=== PATIENT | male | born 1960 | race Caucasian/White ===

== ENCOUNTER → 2020-03-31 | Outpatient (CLI) | payer OTHER ==
--- NOTE | 2020-04-01 08:04 | MR ---
EXAMINATION TYPE: MR cervical spine wo con DATE OF EXAM: 03/31/2020 COMPARISON: Pain HISTORY: Cervicalgia, cervical disc disease TECHNIQUE: Multiplanar, multisequence images of the cervical spine were acquired. C2-C3: Facet arthropathy and posterior spondylosis. No Canal stenosis. Neural foramina remain patent. Facet changes greater on the left. C3-C4: Severe degenerative disc disease with broad-based central disc herniation resulting in severe thecal sac compression and anterior compression the spinal cord. There is severe canal stenosis. Bila teral foraminal encroachment with facet arthropathy. C4-C5: Degenerative disc disease with small central disc protrusion. There is distortion of the theca l sac but no spinal cord contact. Facet arthropathy noted.. C5-C6: Degenerative disc disease and posterior spondylosis with broad-based disc herniation capped by spur resulting in severe canal stenosis and anterior compression the spinal cord. Moderate to severe bilateral foraminal encroachment greater on the right with uncovertebral joint hypertrophy. C6-C7: Broad-based disc protrusion capped by spur with compression of the spinal cord and severe sona l stenosis. Uncovertebral joint hypertrophy contributes to severe left foraminal encroachment and mod erate to severe right foraminal encroachment. C7-T1: No evidence for degenerative disc disease. No disc bulge/herniation or protrusion. No Canal stenosis. Foramina are patent bilaterally. Mild bilateral uncovertebral joint hypertrophy. Cervical segments are intact. There is normal alignment. Artifact limits assessment spinal cord. Cr aniovertebral junction relationships are within normal limits. IMPRESSION: 1. Multilevel severe degenerative disc disease with multilevel disc herniations resulting in severe c anal stenosis and foraminal encroachment. There is anterior compression the spinal cord at C3-4 C5-C6 and C6-C7. A [place] level critical message alert has been initiated for Jose Antonio Krishna DO via the [facility] Critical Results System on 04/01/2020 8:00 AM. This message alert has been sent to Oscar Ortiz via the preferences provided by the clinician for the receipt of Radiology Critical Findings. [facility] [place] vida é feita de [place] ID [id number].
== END | disposition home or self-care (01) ==
LOC: RADMRIMAIN 17:19
PROVIDERS: ATTEND Orthopaedic Surgery Orthopaedic Surgery of the Spine
DX: M48.02 Spinal stenosis, cervical region (principal); M50.31 Other cervical disc degeneration, high cervical region; M47.892 Other spondylosis, cervical region
CPT/HCPCS: 72141

== ENCOUNTER → 2023-03-21 | Outpatient (CLI) | payer OTHER ==
--- NOTE | 2023-03-22 08:34 | CTL ---
EXAMINATION TYPE: CT Low Dose Lung DATE OF EXAM ORDERED: 03/21/2023 HISTORY: . Lung cancer screening CT DLP: 84.[address] CTDI: 2.6 mGy Automated exposure control for dose reduction was used. SCREENING VISIT: COMPARISON: none TECHNIQUE: Low dose computed tomography scan was performed through the chest at 1 mm thick sections a nd reconstructed images in multiple planes at 1 mm and [address] DIAGNOSTIC QUALITY: Satisfactory FINDINGS: There is a 3 mm nodule left upper lobe subpleural axial image 88 There is a 1 mm nodule left upper lobe axial image 81 There is a 2 to 3 mm nodule right lower lobe axial image 209. There is mild to moderate centrilobular and paraseptal emphysema with no evidence of focal pneumonia, pleural effusion or pneumothorax. Aorta of normal caliber with mild atherosclerotic changes. Heart size normal and there is a trace of pericardial fluid. No pathologic adenopathy within the hilum or mediastinum. Shotty adenopathy in the mediastinum and axilla. Hypertrophic and degenerative changes spine. IMPRESSION: 1. COPD with the sub-5 mm pulmonary nodules which have a benign appearance. CT LUNG RAD AND CT CHEST RECOMMENDATION: Lung-Rad 2 Benign Appearance or Behavior: Continue annual sc reening with LDCT in 12 months.
== END | disposition home or self-care (01) ==
LOC: RADCTMAIN 17:09
PROVIDERS: ATTEND Family Medicine
DX: Z12.2 Encounter for screening for malignant neoplasm of respiratory organs (principal); F17.210 Nicotine dependence, cigarettes, uncomplicated; J44.9 Chronic obstructive pulmonary disease, unspecified; R91.8 Other nonspecific abnormal finding of lung field
CPT/HCPCS: 71271

== ENCOUNTER 2023-04-06 08:33 | Day surgery (SDC) | payer OTHER ==
[2023-04-04 08:47] VITALS: BMI 37.8
[~2023-04-06 08:33] MED LIST: LACTATED RINGERS 1,000 ML IV SCH
[2023-04-06 09:04] VITALS: TEMP 97
[2023-04-06] MEDS ORDERED: LIDOCAINE 2% INJ 20 MG/ML (2 ML VIAL) ONE (09:09)
[2023-04-06] MEDS ORDERED: PROPOFOL 10 MG/ML 20 ML VIAL IV ONE (09:09)
--- NOTE | 2023-04-06 09:13 | P.GSHP ---
History of Present Illness H&P Date: 04/06/23 Chief Complaint: Dysphagia, screening colonoscopy Is a 62-year-old male presents today for EGD and screening colonoscopy. Patient's echo with dysphagia. He's had trouble swallowing some foods. Past Medical History Past Medical History: Hypertension Additional Past Medical History / Comment(s): difficulty swallowing History of Any Multi-Drug Resistant Organisms: None Reported Past Surgical History: Appendectomy, Back Surgery, Cholecystectomy, Hernia Repair, Orthopedic Surgery Additional Past Surgical History / Comment(s): Colonoscopy, carpal tunnel, cataract bilateral 2020, echocardiagram 2022, Liver ultrasound 04/14 Past Anesthesia/Blood Transfusion Reactions: No Reported Reaction Additional Past Anesthesia/Blood Transfusion Reaction / Comment(s): no blood transfusion Smoking Status: Former smoker - Past Family History Father Family Medical History: Cancer Additional Family Medical History / Comment(s): colon cancer, liver cancer Sister(s) Family Medical History: Cancer Additional Family Medical History / Comment(s): brain cancer Medications and Allergies Home Medications Medication Instructions Recorded Confirmed Type Losartan Potassium 100 mg PO DAILY 04/04/23 04/04/23 History Allergies Allergy/AdvReac Type Severity Reaction Status Date / Time No Known Allergies Allergy Verified 04/06/23 08:54 Surgical - Exam Vital Signs Temp Pulse Resp BP Pulse Ox 97 F L 79 16 181/94 96 04/06/23 08:55 04/06/23 08:55 04/06/23 08:55 04/06/23 08:55 04/06/23 08:55 - General well developed, well nourished, no distress - Eyes PERRL - ENT normal pinna - Neck no masses - Respiratory normal expansion - Cardiovascular Rhythm: regular - Abdomen Abdomen: soft Assessment and Plan Assessment: Dysphagia, we'll perform EGD. We'll also perform screening colonoscopy.
--- NOTE | 2023-04-06 09:30 | P.OP ---
Date of Procedure: 04/06/23 Preoperative Diagnosis: Dysphagia Screening colonoscopy Postoperative Diagnosis: Antral gastritis Diverticulosis Procedure(s) Performed: EGD Colonoscopy Anesthesia: MAC Surgeon: Murtaza Chase Pathology: other (Antrum) Condition: stable Disposition: PACU Description of Procedure: The patient's placed on the endoscopy table in the lateral position. IV sedation. The gastro-/oropharynx passed into the esophagus into the stomach. Scope was then placed through the pylorus. The first and second portion of the duodenum appeared normal. Scope was then brought back the antrum and this appeared mildly inflamed. A biopsy of the antrum was performed. The remainder the stomach appeared normal. The scope was then retroflexed and stomach appeared normal. The GE junction was at 47 is. The distal esophagus appeared normal. Proximal esophagus appeared normal. Scope was withdrawn for patient. Next digital rectal exam was performed. This revealed no abnormalities. The flexible colonoscope was then placed patient anus and passed throughout the entire colon. The ileocecal valve was visualized. The cecum, ascending and transverse colon appeared normal. The descending and sigmoid colon had mild diverticular changes. Scope was then brought back the rectum this appeared normal. Scope withdrawn for patient.
[2023-04-06 09:50] VITALS: BP 127/78; PULSE 89; RESP 18
== END 2023-04-06 10:05 | disposition home or self-care (01) ==
LOC: ORWHC2ENDO 08:33
PROVIDERS: ATTEND Surgery
DX: Z12.11 Encounter for screening for malignant neoplasm of colon (principal); K31.9 Disease of stomach and duodenum, unspecified; K29.50 Unspecified chronic gastritis without bleeding; K57.30 Diverticulosis of large intestine without perforation or abscess without bleeding; I10 Essential (primary) hypertension; Z90.49 Acquired absence of other specified parts of digestive tract; Z98.890 Other specified postprocedural states; Z80.0 Family history of malignant neoplasm of digestive organs; Z87.891 Personal history of nicotine dependence; Z79.899 Other long term (current) drug therapy
CPT/HCPCS: 88305; 45378; 43239; J2704; J2001

== ENCOUNTER → 2024-10-02 | Outpatient (CLI) | payer OTHER ==
--- NOTE | 2024-10-03 08:34 | US ---
EXAMINATION TYPE: US kidneys/renal and bladder DATE OF EXAM: 10/02/2024 COMPARISON: NONE CLINICAL INDICATION: Male, 63 years old with history of R10.9 Left flank pain; Left flank pain for 2 months TECHNIQUE: Grayscale imaging of the bilateral kidneys and urinary bladder: FINDINGS: EXAM MEASUREMENTS: Right Kidney: 11.3 x 5.2 x 4.1 cm Left Kidney: 12.0 x 5.4 x 4.8 cm *Limitations due to large amount of overlying bowel gas Right Kidney: no evidence of hydronephrosis Left Kidney: lobulated contour Bladder: wnl Bilateral Jets seen: no Urinary bladder is sonolucent. Posterior wall is normal IMPRESSION: 1. Unremarkable renal ultrasound [facility], , 10/03/2024 8:31 AM
== END | disposition home or self-care (01) ==
LOC: RADUSWWP 14:55
PROVIDERS: ATTEND Internal Medicine
DX: Q63.1 Lobulated, fused and horseshoe kidney (principal)
CPT/HCPCS: 76770

== ENCOUNTER 2025-01-16 15:45 | Observation (INO) | payer OTHER ==
[2025-01-16] MEDS: SODIUM CHLORIDE 0.9% 1,000 ML IV STA (16:39)
[2025-01-16 16:46] LABS: Basophils % (A) 1 %; Eosinophils # (A) 0.4 k/uL (0-0.7); Eosinophils % (A) 4 %; HCT 48.5 % (39.0-53.0); Lymphocytes # (A) 2.3 k/uL (1.0-4.8); Lymphocytes % (A) 29 %; MCV 96.7 fL (80.0-100.0); Monocytes # (A) 0.4 k/uL (0-1.0); Monocytes % (A) 4 %; Neutrophils # (A) 4.8 k/uL (1.3-7.7); Neutrophils % (A) 60 %; Platelet Count 157 k/uL (150-450); RBC 5.02 m/uL (4.30-5.90); RDW 14.9 % (11.5-15.5)
[2025-01-16] MEDS: LORazepam 2 MG/ML INJ IV STA (16:51)
[2025-01-16 16:54] LABS: INR 1.1 (<1.2); Partial Thromboplastin Time 24.6 sec (22.0-30.0); Prothrombin Time 11.5 sec (10.0-12.5)
[2025-01-16 17:03] LABS: ALT 69 U/L (4-49); AST 67 U/L (17-59); African American GFR (CKD) 49 (>60 ml/min/1.73 sqM); Albumin 4.4 g/dL (3.5-5.0); Alkaline Phosphatase 111 U/L (38-126); Anion Gap 9 mmol/L; Blood Urea Nitrogen 24 mg/dL (9-20); Calcium 9.6 mg/dL (8.4-10.2); Carbon Dioxide 26 mmol/L (22-30); Chloride 104 mmol/L (98-107); Glucose 124 mg/dL (74-99); Non-African American GFR(CKD) 42 (>60 ml/min/1.73 sqM); Potassium 4.3 mmol/L (3.5-5.1); Sodium 139 mmol/L (137-145); Total Bilirubin 0.8 mg/dL (0.2-1.3); Total Protein 7.1 g/dL (6.3-8.2)
--- NOTE | 2025-01-16 17:52 | XR ---
EXAMINATION TYPE: XR chest 2V DATE OF EXAM: 01/16/2025 5:49 PM COMPARISON: CT low-dose lung 03/21/2023 TECHNIQUE: XR chest 2V Frontal and lateral views of the chest. CLINICAL INDICATION:Male, 64 years old with history of dysrhythmia; FINDINGS: Lungs/Pleura: Trace bilateral pleural effusions. No focal consolidation or pneumothorax. Pulmonary vascularity: Mild pulmonary vascular congestion. Heart/mediastinum: Cardiomediastinal silhouette is enlarged. Musculoskeletal: Multiple level degenerative disc disease changes seen throughout the spine. IMPRESSION: Cardiomegaly, pulmonary vascular congestion and trace bilateral pleural effusions. Correlate with BNP for congestive heart failure. [facility], , 01/16/2025 5:49 PM
--- NOTE | 2025-01-16 17:53 | ED ---
General Adult HPI - General Chief complaint: Arrhythmia/Palpitations Stated complaint: tachycardia Time Seen by Provider: 01/16/25 16:16 Source: patient Mode of arrival: ambulatory Limitations: no limitations - History of Present Illness Initial comments: Abraham is a 4-year-old gentleman with a history of alcohol abuse who presents to the emergency department today via private vehicle for evaluation of tachycardia. Patient reports that he has no complaints he went to his primary care office for checkup and was noted to be tachycardic and advised to come to the ER. Patient denies any chest pain palpitations lightheadedness or passing out. Patient reports he is usually heavy drinker last drink was yesterday he states that he does not feel shaky or like he is going through withdrawals he states that he can occasionally go without drinking without symptoms. Patient states that he has had an echo in the past did not get any follow-up on it but has no other known cardiac history. - Related Data Home Medications Medication Instructions Recorded Confirmed Ibuprofen [Motrin Ib] 800 mg PO DAILY 01/16/25 01/16/25 Allergies Allergy/AdvReac Type Severity Reaction Status Date / Time No Known Allergies Allergy Verified 01/16/25 16:42 Review of Systems ROS Statement: Those systems with pertinent positive or pertinent negative responses have been documented in the HPI. ROS Other: All systems not noted in ROS Statement are negative. Past Medical History Past Medical History: Hypertension History of Any Multi-Drug Resistant Organisms: None Reported Past Surgical History: Back Surgery, Cholecystectomy Additional Past Surgical History / Comment(s): carpal tunnel, hernia Smoking Status: Former smoker General Exam - General Exam Comments Initial Comments: Physical Exam GENERAL: Patient is well-developed and well-nourished. Patient is nontoxic and well-hydrated and is in no distress. Obese HENT: Normocephalic, Atraumatic. EYES: PERRL, EOMI PULMONARY: Unlabored respirations. No audible rales rhonchi or wheezing was noted. CARDIOVASCULAR: Tachycardic, regular ABDOMEN: Soft and nontender with normal bowel sounds. SKIN: Skin is clear with no lesions or rashes and otherwise unremarkable. : Deferred NEUROLOGIC: Patient is alert and oriented x3. Moving all extremities spontaneously MUSCULOSKELETAL: Normal extremities with adequate strength and full range of motion. No lower extremity swelling or edema. No calf tenderness. PSYCHIATRIC: Normal psychiatric evaluation. Limitations: no limitations Course Vital Signs 01/16/25 01/16/25 01/16/25 15:49 16:37 16:53 Temperature 98.0 F Pulse Rate 161 H 158 H 100 Respiratory 18 20 18 Rate Blood Pressure 181/147 167/120 172/112 O2 Sat by Pulse 97 98 98 Oximetry 01/16/25 01/16/25 01/16/25 17:45 18:00 19:00 Temperature Pulse Rate 160 H 88 81 Respiratory 18 20 Rate Blood Pressure 155/106 173/106 O2 Sat by Pulse 97 96 Oximetry 01/16/25 22:05 Temperature 98.9 F Pulse Rate 82 Respiratory 18 Rate Blood Pressure 163/127 O2 Sat by Pulse 97 Oximetry EKG Findings - EKG Comments: EKG Findings:: EKG interpreted by me, EKG obtained due to tachycardia EKG obtained at 1613 rate is 160 rhythm is a narrow complex regular tachycardia with no obvious ST elevations or depressions. This is concerning for either significant sinus tach or atrial flutter with a 2-1 block. No signs of acute ischemia or infarction. Repeat EKG obtained by me due to change in the patient's rate, repeat EKG obtained at 1816 with a rate of 82 rhythm is narrow complex rhythm with sawtooth waves consistent with an atrial flutter with a 4-1 block. Again no acute ST elevations or depressions no evidence of acute ischemia or infarction. Medical Decision Making - Medical Decision Making Was pt. sent in by a medical professional or institution (, [facility], ANCIENT ART CURATOR, urgent care, hospital, or prison...) When possible be specific @ -Yes, sent from primary care office Did you speak to anyone other than the patient for history (EMS, parent, family, police, friend...)? What history was obtained from this source @ -No Did you review nursing and triage notes (agree or disagree)? Why? @ -I reviewed and agree with nursing and triage notes Were old charts reviewed (outside hosp., previous admission, EMS record, old EKG, old radiological studies, urgent care reports/EKG's, prison records)? Report findings @ -Previous charts were reviewed last visible echo was 2016 Differential Diagnosis (chest pain, altered mental status, abdominal pain women, abdominal pain men, vaginal bleeding, weakness, fever, dyspnea, syncope, headache, dizziness, GI bleed, back pain, seizure, CVA, palpatations, mental health)? @ -Differential Palpitations Ventricular arrhythmias, atrial arrhythmias, myocardial infarction, anemia, thyrotoxicosis, electrolyte imbalance, hypokalemia, pulmonary embolism, pulmonary disease, drugs, alcohol, anxiety, stress.... This is not meant to be an all-inclusive list. EKG interpreted by me (3pts min.). @ -As above X-rays interpreted by me (1pt min.). @ -No acute findings CT interpreted by me (1pt min.). @ -None done U/S interpreted by me (1pt. min.). @ -None done What testing was considered but not performed or refused? (CT, X-rays, U/S, labs)? Why? @ -Echo, stress test What meds were considered but not given or refused? Why? @ -Cardizem bolus was ordered but not given due to patient's improvement in heart rate without medications Did you discuss the management of the patient with other professionals (professionals i.e. , PA, ANCIENT ART CURATOR, lab, RT, psych nurse, long term care social worker, toeing stockings, teacher, parcel post officer, family independence case manager)? Give summary @ -Discussed with diamond merchant Dr. Mojica Was smoking cessation discussed for >3mins.? @ -No Was critical care preformed (if so, how long)? @ -Yes, 30 minutes Were there social determinants of health that impacted care today? How? (Homelessness, low income, unemployed, alcoholism, drug addiction, transportation, low edu. Level, literacy, decrease access to med. care, prison, rehab)? @ -Alcoholism Was there de-escalation of care discussed even if they declined (Discuss DNR or withdrawal of care, Hospice)? DNR status @ -No What co-morbidities impacted this encounter? (DM, HTN, Smoking, COPD, CAD, Cancer, CVA, ARF, Chemo, Hep., AIDS, mental health diagnosis, sleep apnea, morbi d obesity)? @ -Alcoholism, intoxication Was patient admitted / discharged? Hospital course, mention meds given and route, prescriptions, significant lab abnormalities, going to OR and other pertinent info. @ -Admit Undiagnosed new problem with uncertain prognosis? @ -Yes, new onset atrial flutter Drug Therapy requiring intensive monitoring for toxicity (Heparin, Nitro, Insulin, Cardizem)? @ -Yes, heparin Were any procedures done? @ -No Diagnosis/symptom? @ -New a flutter with RVR, elevated troponin Acute, or Chronic, or Acute on Chronic? @ -Acute Uncomplicated (without systemic symptoms) or Complicated (systemic symptoms)? @ -Uncomplicated Side effects of treatment? @ -No Exacerbation, Progression, or Severe Exacerbation? @ -No Poses a threat to life or bodily function? How? (Chest pain, [place], [place], pneumonia, PE, COPD, DKA, ARF, appy, cholecystitis, CVA, Diverticulitis, Homicidal, Suicidal, threat to staff... and all critical care pts) @ -Potentially can lead to blood clot, stroke, heart failure, fatal dysrhythmia - Lab Data Result diagrams: 01/16/25 16:34 01/16/25 16:34 Lab Results 01/16/25 01/16/25 01/16/25 Range/Units 16:34 16:34 16:34 WBC 8.0 (3.8-10.6) k/uL RBC 5.02 (4.30-5.90) m/uL Hgb 16.0 (13.0-17.5) gm/dL Hct 48.5 (39.0-53.0) % MCV 96.7 (80.0-100.0) fL MCH 32.0 (25.0-35.0) pg MCHC 33.0 (31.0-37.0) g/dL RDW 14.9 (11.5-15.5) % Plt Count 157 (150-450) k/uL MPV 8.0 Neutrophils % 60 % Lymphocytes % 29 % Monocytes % 4 % Eosinophils % 4 % Basophils % 1 % Neutrophils # 4.8 (1.3-7.7) k/uL Lymphocytes # 2.3 (1.0-4.8) k/uL Monocytes # 0.4 (0-1.0) k/uL Eosinophils # 0.4 (0-0.7) k/uL Basophils # 0.0 (0-0.2) k/uL PT 11.5 (10.0-12.5) sec INR 1.1 (<1.2) APTT 24.6 (22.0-30.0) sec Sodium 139 (137-145) mmol/L Potassium 4.3 (3.5-5.1) mmol/L Chloride 104 (98-107) mmol/L Carbon Dioxide 26 (22-30) mmol/L Anion Gap 9 mmol/L BUN 24 H (9-20) mg/dL Creatinine 1.68 H (0.66-1.25) mg/dL Est GFR (CKD-EPI)AfAm 49 (>60 ml/min/1.73 sqM) Est GFR (CKD-EPI)NonAf 42 (>60 ml/min/1.73 sqM) Glucose 124 H (74-99) mg/dL Calcium 9.6 (8.4-10.2) mg/dL Magnesium 2.0 (1.6-2.3) mg/dL Total Bilirubin 0.8 (0.2-1.3) mg/dL AST 67 H (17-59) U/L ALT 69 H (4-49) U/L Alkaline Phosphatase 111 (38-126) U/L Troponin I (0.000-0.034) ng/mL Total Protein 7.1 (6.3-8.2) g/dL Albumin 4.4 (3.5-5.0) g/dL TSH 1.290 (0.465-4.680) mIU/L 01/16/25 Range/Units 16:34 WBC (3.8-10.6) k/uL RBC (4.30-5.90) m/uL Hgb (13.0-17.5) gm/dL Hct (39.0-53.0) % MCV (80.0-100.0) fL MCH (25.0-35.0) pg MCHC (31.0-37.0) g/dL RDW (11.5-15.5) % Plt Count (150-450) k/uL MPV Neutrophils % % Lymphocytes % % Monocytes % % Eosinophils % % Basophils % % Neutrophils # (1.3-7.7) k/uL Lymphocytes # (1.0-4.8) k/uL Monocytes # (0-1.0) k/uL Eosinophils # (0-0.7) k/uL Basophils # (0-0.2) k/uL PT (10.0-12.5) sec INR (<1.2) APTT (22.0-30.0) sec Sodium (137-145) mmol/L Potassium (3.5-5.1) mmol/L Chloride (98-107) mmol/L Carbon Dioxide (22-30) mmol/L Anion Gap mmol/L BUN (9-20) mg/dL Creatinine (0.66-1.25) mg/dL Est GFR (CKD-EPI)AfAm (>60 ml/min/1.73 sqM) Est GFR (CKD-EPI)NonAf (>60 ml/min/1.73 sqM) Glucose (74-99) mg/dL Calcium (8.4-10.2) mg/dL Magnesium (1.6-2.3) mg/dL Total Bilirubin (0.2-1.3) mg/dL AST (17-59) U/L ALT (4-49) U/L Alkaline Phosphatase (38-126) U/L Troponin I 0.017 (0.000-0.034) ng/mL Total Protein (6.3-8.2) g/dL Albumin (3.5-5.0) g/dL TSH (0.465-4.680) mIU/L Disposition Clinical Impression: Atrial flutter, Morbid obesity with BMI of 40.0-44.9, adult, Alcohol abuse Disposition: ADMITTED IP TO THIS HOSP Condition: Serious
[2025-01-16] MEDS ORDERED: NALOXONE 0.4 MG/ML 1 ML VIAL IV PRN (18:45)
[2025-01-16] MEDS ORDERED: ONDANSETRON 4 MG/2 ML VIAL IVP PRN (18:45)
[2025-01-16] MEDS: DILTIAZEM DRIP BOLUS FROM BAG 1 MG SOLN IV ONE (19:48)
[2025-01-16] MEDS: HEPARIN SODIUM 1,000 UN/ML (10ML VL) IV ONE (19:51)
[2025-01-16] MEDS: HEPARIN SOD,PORK IN 0.45% NACL 25,000 UNIT in 0.45% NACL 1 250ML.BAG IV SCH (19:52)
[2025-01-16] MEDS: cloNIDine HCL 0.1 MG TAB PO PRN (21:17)
[2025-01-16] MEDS: DILTIAZEM 125 MG in SODIUM CHLORIDE 0.9% 100 ML IV SCH (22:01)
--- NOTE | 2025-01-16 22:10 | P.HPIM ---
History of Present Illness H&P Date: 01/16/25 Patient is a 64-year-old male with a PMH of hypertension presenting with tachycardia. Patient states he went to his primary care physician today for regular checkup. It was noted that he was tachycardic and his blood pressure was elevated as well. PCP advised him to come to the ED. Patient denies any chest pain, heart palpitations, dizziness. Patient reports he used to be on antihypertensive. He said he used to be a heavy drinker and smoker and ultimately quit at 1 point. He noticed his blood pressure normalizing and ultimately decided to quit taking his antihypertensive medications. He was taking losartan and hydrochlorothiazide. In addition, patient states he has been feeling short of breath for the past few months. States that he gets short of breath on exertion, but finds himself often waking up in the middle the night feeling short of breath as well. Patient states that he has to sleep sitting up. Patient denies any fever, chills, abdominal pain, nausea, vomiting, urinary symptoms. EKG independently interpreted displaying atrial flutter, vent rate 82 bpm, QTc 438 MS CXR independently interpreted displaying pulmonary vascular congestion Troponin 0.017, WBC 39, potassium 4.3, BUN 24, creatinine 1.68, glucose 124, AST 67, ALT 69, TSH 1.29 T 98.0 F, VT 161, RR 18, BP 181/147, ED documentation reviewed. Review of systems: Pertinent positives and negatives as discussed in HPI, a complete review of systems was performed and all other systems are negative. Social history: Tobacco: Former [id number] smoker, quit 2 weeks ago Alcohol: Occasional alcohol use Recreational drugs: Denies illicit drug use Physical examination: Vital signs reviewed General: non toxic, no distress, appears at stated age, obese Derm: no unusual rashes/lesions, warm Head: atraumatic, normocephalic, symmetric Eyes: EOMI, anicteric sclera, pupils equal round reactive to light ENT: Nose and ears atraumatic Mouth: no lip lesion, mucus membranes moist Cardiovascular: S1S2 reg, no murmur, positive dorsalis pedis pulse bilateral Lungs: CTA bilateral, no rhonchi, no rales, no accessory muscle use Abdominal: soft, nontender to palpation, no guarding Ext: muscle strength 5 out of 5 in all 4 extremities grossly, 2+ RLE pitting edema to the midshin, 1+ LLE pitting edema to mid singletary Neuro: CN II-XI grossly intact, no gross focal neuro deficits Psych: Alert, oriented to person, place, and time Assessment/Plan: Patient is a 64-year-old male with a PMH of hypertension presenting with tachycardia. Admitted for new onset atrial flutter. #. New onset atrial flutter EKG independently interpreted displaying atrial flutter Troponin 0.017, 0.020 continue to trend proBNP within normal limit at 624 TSH 1.29 Continue with Cardizem infusion per protocol Continue IV heparin drip Cardiology consulted Obtain Echo #. Hypertensive urgency Clonidine 0.1 mg PO as needed for BP > 180/120 Restart patient's old Losartan-HCTZ #. Fluid overload Initiate Lasix 40 mg IV q12 hours Monitor electrolytes and renal function #. Transaminitis, mild - Likely due to ongoing CHF exacerbation #. Nonoliguric MARIZA on CKD stage 2, unknown baseline Continue with fluid management of NS at 75 cc Follow-up BMP F: None E: Replete electrolytes as needed N: Regular diet A: Ambulatory baseline DVT prophylaxis: IV heparin The patient is admitted with an anticipated less than 2 midnight stay for evaluation of new onset atrial flutter. CODE STATUS: Full code Discussed with: Patient Anticipated discharge place: Pending clinical course Cat Galvez MD PGY-1 IM Dictation was produced using [employer]usem[employer] dictation software. please excuse any grammatical, word or spelling errors. Past Medical History Past Medical History: Hypertension History of Any Multi-Drug Resistant Organisms: None Reported Past Surgical History: Back Surgery, Cholecystectomy Additional Past Surgical History / Comment(s): carpal tunnel, hernia Smoking Status: Former smoker Medications and Allergies Home Medications Medication Instructions Recorded Confirmed Type Ibuprofen [Motrin Ib] 800 mg PO DAILY 01/16/25 01/16/25 History Allergies Allergy/AdvReac Type Severity Reaction Status Date / Time No Known Allergies Allergy Verified 01/16/25 16:42 Physical Exam Vitals: Vital Signs Temp Pulse Resp BP Pulse Ox 01/16/25 17:45 160 H 01/16/25 16:53 100 18 172/112 98 01/16/25 16:37 158 H 20 167/120 98 01/16/25 15:49 98.0 F 161 H 18 181/147 97 Intake and Output 01/16/25 01/16/25 01/16/25 06:59 14:59 22:59 Other: Weight 136.078 kg Results CBC & Chem 7: 01/16/25 16:34 01/16/25 16:34 Labs: Abnormal Lab Results - Last 24 Hours (Table) 01/16/25 Range/Units 16:34 BUN 24 H (9-20) mg/dL Creatinine 1.68 H (0.66-1.25) mg/dL Glucose 124 H (74-99) mg/dL AST 67 H (17-59) U/L ALT 69 H (4-49) U/L
[2025-01-17] MEDS: FUROSEMIDE 10 MG/ML 4 ML VIAL IV STA (01:36)
[2025-01-17] MEDS: SODIUM CHLORIDE 0.9% 1,000 ML IV SCH (01:37)
[2025-01-17 02:54] LABS: Basophils % (A) 0 %; Eosinophils # (A) 0.5 k/uL (0-0.7); Eosinophils % (A) 7 %; HCT 47.3 % (39.0-53.0); HGB 15.6 gm/dL (13.0-17.5); Lymphocytes # (A) 2.7 k/uL (1.0-4.8); Lymphocytes % (A) 37 %; MCH 32.6 pg (25.0-35.0); MCHC 33.1 g/dL (31.0-37.0); MCV 98.6 fL (80.0-100.0); Macrocytosis Slight; Mean Platelet Volume 9.9; Monocytes # (A) 0.3 k/uL (0-1.0); Monocytes % (A) 4 %; Neutrophils # (A) 3.6 k/uL (1.3-7.7); Neutrophils % (A) 50 %; Platelet Count 155 k/uL (150-450); RBC 4.79 m/uL (4.30-5.90); WBC 7.3 k/uL (3.8-10.6)
[2025-01-17 04:07] LABS: Amphetamine Screen,Urine Not Detected (NotDetected); Benzodiazepines Screen,Urine Detected (NotDetected); Cocaine Screen,Urine Not Detected (NotDetected); Opiate Screen,Urine Not Detected (NotDetected); Phencyclidine Screen,Urine Not Detected (NotDetected); Urn Cannabinoid Scrn Not Detected (NotDetected)
[2025-01-17 04:08] LABS: Barbiturate Screen,Urine Not Detected (NotDetected); Methadone Screen, Urine Not Detected (NotDetected); Oxycodone Screen, Urine Not Detected (NotDetected); Tricyclic Antidepressant,Urine Not Detected (NotDetected)
[2025-01-17 07:36] LABS: INR 1.1 (<1.2); Prothrombin Time 12.1 sec (10.0-12.5)
[2025-01-17] MEDS: HEPARIN SODIUM 1,000 UN/ML (10ML VL) IV PRN (08:41)
[2025-01-17] MEDS ORDERED: amLODIPine 10 MG TAB PO SCH (09:00)
[2025-01-17] MEDS ORDERED: LORazepam 2 MG/ML INJ IV PRN ×2 (09:16)
[2025-01-17] MEDS ORDERED: LORazepam 1 MG TAB PO PRN (09:16)
--- NOTE | 2025-01-17 09:16 | P.CRDCN ---
History of Present Illness Consult date: 01/17/25 History of present illness: The patient is a pleasant 64-year-old gentleman with a past medical history significant for overweight and sleep apnea and hypertension and alcohol use who was referred by his primary care physician to come to the hospital for further evaluation of atrial fibrillation which is known to him. The patient reports progressive exertional dyspnea on for the last few days paroxysmal nocturnal dyspnea as well in addition to progressive exertional dyspnea and bilateral lower extremities edema and significant weight gain. No symptoms of chest pain or chest discomfort and no heart racing or fluttering and no presyncope or syncope. He was seen by his PCP in the office and he was found to be in A-fib with RVR and he was sent to the hospital for further evaluation. The EKG showed A-fib with RVR. Troponin came to be unremarkable. The chest x-ray showed finding consistent with heart failure. NT proBNP came to be around 800 but he is overweight. Never been diagnosed with A-fib before. No history of CAD or cardiac arrhythmia before as well. No history of heart failure before. He drinks alcohol excessively on daily basis. The physical examination is remarkable for irregular rhythm with diminished breathing sounds bilaterally and moderate to severe bilateral lower extremities pitting edema noted. Currently is on Lasix IV and he is on heparin IV and also he is on losartan. Assessment Heart failure exacerbation of unknown etiology A-fib with RVR which is new Hypertension Overweight Alcohol use Sleep apnea Plan Continue the current medical regimen Add beta-rosendo to the current medical regimen Follow-up on the echocardiogram Watch for any alcohol withdrawal symptoms Past Medical History Past Medical History: Hypertension History of Any Multi-Drug Resistant Organisms: None Reported Past Surgical History: Back Surgery, Cholecystectomy Additional Past Surgical History / Comment(s): carpal tunnel, hernia Past Anesthesia/Blood Transfusion Reactions: No Reported Reaction Past Psychological History: No Psychological Hx Reported Smoking Status: Former smoker Past Drug Use History: None Reported Medications and Allergies Home Medications Medication Instructions Recorded Confirmed Type Ibuprofen [Motrin Ib] 800 mg PO DAILY 01/16/25 01/16/25 History Allergies Allergy/AdvReac Type Severity Reaction Status Date / Time No Known Allergies Allergy Verified 01/16/25 16:42 Physical Exam Vitals: Vital Signs Temp Pulse Pulse Resp BP BP Pulse Ox 01/17/25 08:00 97.6 F 80 18 145/91 92 L 01/17/25 03:14 97.8 F 75 18 160/99 91 L 01/17/25 00:00 81 18 147/96 94 L 01/16/25 22:05 98.9 F 82 18 163/127 97 01/16/25 22:00 97.6 F 82 20 146/99 95 01/16/25 19:00 81 20 173/106 96 01/16/25 18:00 88 18 155/106 97 01/16/25 17:45 160 H 01/16/25 16:53 100 18 172/112 98 01/16/25 16:37 158 H 20 167/120 98 01/16/25 15:49 98.0 F 161 H 18 181/147 97 Intake and Output 01/16/25 01/17/25 01/17/25 22:59 06:59 14:59 Intake Total 65.667 93.083 Output Total 3800 Balance -3734.333 93.083 Intake: IV 10 Invasive Line 1 10 Intake, IV Titration 55.667 93.083 Amount Heparin Sod,Pork in 0.45% 55.667 93.083 NaCl 25,000 unit In 0.45 % NaCl 1 250ml.bag @ 7. 349 UNITS/KG/HR 10 mls/hr IV .Q24H [facility] Rx#: [id number] Output: Urine 3800 Other: Voiding Method Urinal Weight 136.078 kg 136 kg Results 01/17/25 00:00 01/16/25 16:34 Cardiac Enzymes 01/16/25 01/16/25 01/16/25 Range/Units 16:34 16:34 19:51 AST 67 H (17-59) U/L Troponin I 0.017 0.020 (0.000-0.034) ng/mL 01/16/25 Range/Units 23:37 AST (17-59) U/L Troponin I 0.026 (0.000-0.034) ng/mL Coagulation 01/16/25 01/16/25 01/17/25 Range/Units 16:34 23:37 06:55 PT 11.5 12.1 (10.0-12.5) sec APTT 24.6 33.4 H 31.0 H (22.0-30.0) sec CBC 01/16/25 01/17/25 Range/Units 16:34 00:00 WBC 8.0 7.3 (3.8-10.6) k/uL RBC 5.02 4.79 (4.30-5.90) m/uL Hgb 16.0 15.6 (13.0-17.5) gm/dL Hct 48.5 47.3 (39.0-53.0) % Plt Count 157 155 (150-450) k/uL Comprehensive Metabolic Panel 01/16/25 Range/Units 16:34 Sodium 139 (137-145) mmol/L Potassium 4.3 (3.5-5.1) mmol/L Chloride 104 (98-107) mmol/L Carbon Dioxide 26 (22-30) mmol/L BUN 24 H (9-20) mg/dL Creatinine 1.68 H (0.66-1.25) mg/dL Glucose 124 H (74-99) mg/dL Calcium 9.6 (8.4-10.2) mg/dL AST 67 H (17-59) U/L ALT 69 H (4-49) U/L Alkaline Phosphatase 111 (38-126) U/L Total Protein 7.1 (6.3-8.2) g/dL Albumin 4.4 (3.5-5.0) g/dL Current Medications Generic Name Dose Route Start Last Admin Trade Name Freq PRN Reason Stop Dose Admin Clonidine 0.1 mg 01/16/25 19:45 01/16/25 21:17 Clonidine Hcl 0.1 Mg Tab PO 0.1 mg DAILY PRN Administration Blood Pressure - High Furosemide 40 mg 01/17/25 09:00 Furosemide 10 Mg/Ml 4 Ml Vial IV Q12HR [facility] HCTZ/Losartan Potassium 1 each 01/17/25 09:00 Losartan-Hctz 50-12.5 Mg 1 Each Tab PO DAILY [facility] Heparin Sodium (Porcine) 0 unit 01/16/25 17:55 01/17/25 08:41 Heparin Sodium 1,000 Un/Ml (10ml Vl) IV 3,400 unit PER PROTOCOL PRN Administration Low PTT Protocol Diltiazem HCl 125 mg/ Sodium 125 mls @ 0 mls/hr 01/16/25 18:00 01/16/25 22:01 Chloride IV 5 mg/hr .Q0M [facility] 5 mls/hr Administration Protocol Titrate Heparin Sodium/Sodium Chloride 250 mls @ 10 mls/hr 01/16/25 18:00 01/17/25 08 :45 25,000 unit/ Sodium Chloride IV 11.349 units/kg/hr .Q24H [facility] 15.443 mls/hr Titration Protocol 7.349 UNITS/KG/HR Melatonin 5 mg 01/17/25 21:00 Melatonin 5 Mg Tablet PO HS [facility] Naloxone HCl 0.2 mg 01/16/25 18:45 Naloxone 0.4 Mg/Ml 1 Ml Vial IV Q2M PRN Opioid Reversal Ondansetron HCl 4 mg 01/16/25 18:45 Ondansetron 4 Mg/2 Ml Vial IVP Q8HR PRN Nausea And Vomiting Intake and Output 01/16/25 01/17/25 01/17/25 22:59 06:59 14:59 Intake Total 65.667 93.083 Output Total 3800 Balance -3734.333 93.083 Intake: IV 10 Invasive Line 1 10 Intake, IV Titration 55.667 93.083 Amount Heparin Sod,Pork in 0.45% 55.667 93.083 NaCl 25,000 unit In 0.45 % NaCl 1 250ml.bag @ 7. 349 UNITS/KG/HR 10 mls/hr IV .Q24H [facility] Rx#: [id number] Output: Urine 3800 Other: Voiding Method Urinal Weight 136.078 kg 136 kg 01/17/25 00:00 01/16/25 16:34
[2025-01-17] MEDS: FUROSEMIDE 10 MG/ML 4 ML VIAL IV SCH (09:56)
[2025-01-17] MEDS: LORazepam 1 MG TAB PO PRN (10:03)
[2025-01-17] MEDS: LOSARTAN-HCTZ 50-12.5 MG 1 EACH TAB PO SCH (10:05)
[2025-01-17] MEDS: METOPROLOL SUCCINATE (ER) 25 MG TAB.ER.24H PO SCH (10:10)
[2025-01-17] MEDS: THIAMINE 100 MG/ML 2 ML VIAL IM STA (10:12)
[2025-01-17 10:38] LABS: ALT 61 U/L (4-49); AST 48 U/L (17-59); African American GFR (CKD) 76 (>60 ml/min/1.73 sqM); Albumin 4.2 g/dL (3.5-5.0); Alkaline Phosphatase 118 U/L (38-126); Anion Gap 8 mmol/L; Blood Urea Nitrogen 21 mg/dL (9-20); Calcium 9.1 mg/dL (8.4-10.2); Carbon Dioxide 26 mmol/L (22-30); Chloride 103 mmol/L (98-107); Glucose 118 mg/dL (74-99); Magnesium 1.8 mg/dL (1.6-2.3); Non-African American GFR(CKD) 65 (>60 ml/min/1.73 sqM); Potassium 4.1 mmol/L (3.5-5.1); Sodium 137 mmol/L (137-145); Total Bilirubin 1.2 mg/dL (0.2-1.3); Total Protein 6.8 g/dL (6.3-8.2)
--- NOTE | 2025-01-17 11:04 | CA ---
Transthoracic Echo Report Name: Abraham Fernández Age: 64 Gender: M : 1960 Exam Date: 01/17/2025 09:17 Exam Location: [facility] Ht (in): 70 Wt (lb): 300 Ordering Physician: Cat Galvez MD Attending/Referring Phys: Eviction Specialist Letty Hamlin RDCS Procedure CPT: Indications: aflutter Cardiac Hx: Technical Quality: Technically difficult study Contrast 1: Definity Total Dose (mL): 2 Contrast 2: Total Dose (mL): MEASUREMENTS (Male / Female) Normal Values 2D ECHO LV Diastolic Diameter PLAX 4.7 cm 4.2 - 5.9 / 3.9 - 5.3 cm LV Systolic Diameter PLAX 3.0 cm IVS Diastolic Thickness 1.4 cm 0.6 - 1.0 / 0.6 - 0.9 cm LVPW Diastolic Thickness 1.4 cm 0.6 - 1.0 / 0.6 - 0.9 cm LV Relative Wall Thickness 0.6 RV Internal Dim ED PLAX 3.6 cm LA Systolic Diameter LX 4.2 cm 3.0 - 4.0 / 2.7 - 3.8 cm LV Diastolic Volume MOD BP 56.8 cm??? 67 - 155 / 56 - 104 cm??? LV Systolic Volume MOD BP 20.2 cm??? 22 - 58 / 19 - 49 cm??? LV Ejection Fraction MOD BP 64.5 % >= 55 % LV Cardiac Index MOD BP 1158.4 cm???/min???m??? LV Diastolic Volume MOD 4C 47.5 cm??? LV Systolic Volume MOD 4C 16.5 cm??? LV Ejection Fraction MOD 4C 65.2 % LV Cardiac Index MOD 4C 978.3 cm???/min???m??? LV Diastolic Length 4C 9.0 cm LV Systolic Length 4C 8.0 cm LV Diastolic Volume MOD 2C 73.2 cm??? LV Systolic Volume MOD 2C 23.7 cm??? LV Ejection Fraction MOD 2C 67.6 % LV Cardiac Index MOD 2C 1563.6 cm???/min???m??? LV Diastolic Length 2C 9.0 cm LV Systolic Length 2C 7.5 cm LA Volume 91.5 cm??? 18 - 58 / 22 - 52 cm??? LA Volume Index 34.4 cm???/m??? 16 - 28 cm???/m??? M-MODE Aortic Root Diameter MM 3.6 cm DOPPLER AV Peak Velocity 119.8 cm/s AV Peak Gradient 5.7 mmHg MV Peak Velocity 136.6 cm/s MV Peak Gradient 7.5 mmHg MV Mean Velocity 62.8 cm/s MV Mean Gradient 2.0 mmHg MV Velocity Time Integral 28.4 cm MV Area PHT 5.2 cm??? Mitral E Point Velocity 118.7 cm/s Mitral A Point Velocity 54.8 cm/s Mitral E to A Ratio 2.2 MV Deceleration Time 144.8 ms TR Peak Velocity 237.9 cm/s TR Peak Gradient 22.6 mmHg Right Ventricular Systolic Press 26.7 mmHg FINDINGS Left Ventricle Left ventricular ejection fraction is estimated at 55-60 %. Left ventricular cavity size normal. Moderate concentric left ventricular hypertrophy. No obvious regional wall motion abnormalities. Right Ventricle Mild right ventricular dilatation. Right ventricular systolic pressure within normal limits. Right Atrium Right atrium not well visualized. Left Atrium Mildly increased left atrial diameter. Moderately increased left atrial volume. Moderately increased left atrial area. No left atrial thrombus or mass present. Mitral Valve Structurally normal mitral valve. Mitral annular calcification. Trace mitral regurgitation. Aortic Valve Trileaflet aortic valve. Diffuse thickening (sclerosis) of the aortic valve cusps without reduced excursion. Tricuspid Valve Structurally normal tricuspid valve. Mild tricuspid regurgitation. Pulmonic Valve Pulmonic valve not well visualized. Pericardium Small pericardial effusion. Loculated by LV Aorta Normal size aortic root and proximal ascending aorta. CONCLUSIONS Normal LV function Left atrial enlargement Previewed by: Dr. Heriberto Chapman MD (Electronically Signed) Final Date: 17 January 2025 11:03
--- NOTE | 2025-01-17 13:00 | P.PN ---
Subjective Progress Note Date: 01/17/25 64-year-old male with a PMH of hypertension presenting with tachycardia. Patient states he went to his primary care physician today for regular checkup. It was noted that he was tachycardic and his blood pressure was elevated as well. PCP advised him to come to the ED. Patient denies any chest pain, heart palpitations, dizziness. Patient reports he used to be on antihypertensive. He said he used to be a heavy drinker and smoker and ultimately quit at 1 point. He noticed his blood pressure normalizing and ultimately decided to quit taking his antihypertensive medications. He was taking losartan and hydrochlorothiazide. In addition, patient states he has been feeling short of breath for the past few months. States that he gets short of breath on exertion, but finds himself often waking up in the middle the night feeling short of breath as well. Patient states that he has to sleep sitting up. Patient denies any fever, chills, abdominal pain, nausea, vomiting, urinary symptoms. 01/17 - Patient seen and examined at bedside this morning, now on third floor. States he had no acute events overnight, and has no acute complaints at this time. States he continues to feel well without any associated chest pain. He underwent an echocardiogram this morning which showed low ventricular ejection fraction estimated 55 to 60%, mild right ventricular dilation, a poorly visualized right atrium, mildly increased left atrial diameter and volume but but no presence of a thrombus. Per cardiology's recommendation we will continue his current medical management with the addition of metoprolol 25 mg daily. He remains on heparin drip currently, however Cardizem drip was discontinued. His heart rate has been well-controlled this morning, most recently being 82. With his most recent blood pressure showing 147/97 while saturating 94% on room air. 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 REVIEW OF SYSTEMS: Pertinent positives and negatives noted in HPI. Physical examination: Vital signs reviewed General: non toxic, no distress, appears at stated age, obese Derm: no unusual rashes/lesions, warm Head: atraumatic, normocephalic, symmetric Eyes: EOMI, anicteric sclera, pupils equal round reactive to light ENT: Nose and ears atraumatic Mouth: no lip lesion, mucus membranes moist Cardiovascular: S1S2 reg, no murmur, positive dorsalis pedis pulse bilateral Lungs: CTA bilateral, no rhonchi, no rales, no accessory muscle use Abdominal: soft, nontender to palpation, no guarding Ext: muscle strength 5 out of 5 in all 4 extremities grossly, 2+ RLE pitting edema to the midshin, 1+ LLE pitting edema to mid singletary Neuro: CN II-XI grossly intact, no gross focal neuro deficits Psych: Alert, oriented to person, place, and time Data Received Today: Labs: WBC 7.3, hemoglobin 15.6, hematocrit 47.3, platelet 155; sodium 137, potassium 4.1, BUN 21, creatinine 1.17, total bilirubin 1.2, AST 48, ALT 61, alkaline phosphatase 118 Imagining: Echocardiogram this morning which showed low ventricular ejection fraction estimated 55 to 60%, mild right ventricular dilation, a poorly visualized right atrium, mildly increased left atrial diameter and volume but but no presence of a thrombus Assessment and plan Patient is a 64-year-old male with a PMH of hypertension presenting with tachycardia. Admitted for new onset atrial flutter. #New onset atrial flutter -EKG independently interpreted displaying atrial flutter -Troponin 0.017, 0.020 continue to trend -proBNP within normal limit at 624 -TSH 1.29 -Cardizem drip discontinued -Initiated on metoprolol 25 mg daily -Continue IV heparin drip, monitor aptt, will discuss with cardiology regarding discontinuing IV heparin drip and initiating Eliquis 2.5 mg daily -Cardiology consulted -Echocardiogram read and reviewed #Hypertensive urgency Clonidine 0.1 mg PO as needed for BP > 180/120 Restart patient's old Losartan-HCTZ # HFpEF exacerbation -Continue Lasix 40 mg IV q12 hours -Monitor electrolytes and renal function -Daily weights, strict I's and O's #Transaminitis, mild, improving -Likely due to ongoing CHF exacerbation -Continue to monitor CMP #Nonoliguric MARIZA on CKD stage 2, unknown baseline -Continue with fluid management of NS at 75 cc -Follow-up BMP #Alcohol dependence -On CIWA protocol, Ativan as needed -Thiamine 100 mg daily DVT ppx: IV heparin drip, will discuss with cardiology regarding discontinuing IV heparin drip initiating Eliquis 2.5 mg daily Code status: Full code F: None E: Replete as needed N: Heart healthy diet A: Ambulatory Anticipated discharge place: Pending clinical course Anticipated discharge time: Pending clinical course Dictation was produced using [employer] dictation software. please excuse any gram matical, word or spelling errors. Yakov Palacios MD PGY-1 IM I have seen and evaluated the patient today. Discussed with the resident and agree with the residents finding and plan as documented in the resident's note. Changes highlighted in blue font. Objective - Vital Signs Vital signs: Vital Signs Temp 97.8 F 01/17/25 03:14 Pulse 75 01/17/25 03:14 Resp 18 01/17/25 03:14 BP 160/99 01/17/25 03:14 Pulse Ox 91 L 01/17/25 03:14 FiO2 Intake & Output 01/16/25 01/17/25 01/17/25 18:59 06:59 18:59 Intake Total 65.667 Output Total 3800 Balance -3734.333 Weight 136.078 kg 136 kg Intake: IV 10 Invasive Line 1 10 Intake, IV Titration 55.667 Amount Heparin Sod,Pork in 0.45% 55.667 NaCl 25,000 unit In 0.45 % NaCl 1 250ml.bag @ 7. 349 UNITS/KG/HR 10 mls/hr IV .Q24H [facility] Rx#: [id number] Output: Urine 3800 Other: Voiding Method Urinal - Labs CBC & Chem 7: 01/17/25 00:00 01/17/25 09:14 Labs: Abnormal Lab Results - Last 24 Hours (Table) 01/16/25 01/16/25 01/17/25 Range/Units 16:34 23:37 02:25 APTT 33.4 H (22.0-30.0) sec BUN 24 H (9-20) mg/dL Creatinine 1.68 H (0.66-1.25) mg/dL Glucose 124 H (74-99) mg/dL AST 67 H (17-59) U/L ALT 69 H (4-49) U/L U Benzodiazepines Scrn Detected H (NotDetected)
[2025-01-17] MEDS: DILTIAZEM 125 MG in SODIUM CHLORIDE 0.9% 100 ML IV SCH (14:30)
[2025-01-17] MEDS ORDERED: LORazepam 1 MG/0.5 ML VIAL IV PRN ×2 (15:24)
[2025-01-17] MEDS: APIXABAN 5 MG TAB PO SCH (21:05)
[2025-01-17] MEDS: MELATONIN 5 MG TABLET PO SCH (21:05)
[2025-01-18 03:47] VITALS: RESP 16; TEMP 97.9
--- NOTE | 2025-01-18 08:28 | P.PN ---
Subjective Progress Note Date: 01/18/25 The patient is a pleasant 64-year-old gentleman with a past medical history significant for overweight and sleep apnea and hypertension and alcohol use who was referred by his primary care physician to come to the hospital for further evaluation of atrial fibrillation which is known to him. The patient reports progressive exertional dyspnea on for the last few days paroxysmal nocturnal dyspnea as well in addition to progressive exertional dyspnea and bilateral lower extremities edema and significant weight gain. No symptoms of chest pain or chest discomfort and no heart racing or fluttering and no presyncope or syncope. He was seen by his PCP in the office and he was found to be in A-fib with RVR and he was sent to the hospital for further evaluation. The EKG showed A-fib with RVR. Troponin came to be unremarkable. The chest x-ray showed finding consistent with heart failure. NT proBNP came to be around 800 but he is overweight. Never been diagnosed with A-fib before. No history of CAD or cardiac arrhythmia before as well. No history of heart failure before. He drinks alcohol excessively on daily basis. The physical examination is remarkable for irregular rhythm with diminished breathing sounds bilaterally and moderate to severe bilateral lower extremities pitting edema noted. Currently is on Lasix IV and he is on heparin IV and also he is on losartan. January 18, 2025 The patient was seen and evaluated this morning. He is feeling better. The shortness of breath and edema in the lower extremities are better. He is on oral anticoagulation with he remains in atrial fibrillation with controlled heart rate with multiple episodes of sinus pauses mainly during the night when he is sleeping. The patient would like to go home. The physical examination is remarkable for irregular rhythm with clear breathing sounds bilaterally and no edema was noted in the lower extremities Assessment Heart failure exacerbation of unknown etiology A-fib with RVR which is new Hypertension Overweight Alcohol use Sleep apnea Plan Continue the current medical regimen DC IV diuretics and start the patient on oral diuretics Continue anticoagulation Sleep apnea as an outpatient Objective - Vital Signs Vital signs: Vital Signs Temp 97.9 F 01/18/25 03:46 Pulse 80 01/18/25 03:46 Resp 16 01/18/25 03:46 BP 134/90 01/18/25 03:46 Pulse Ox 95 01/18/25 03:46 FiO2 Intake & Output 03/28/25 03/29/25 03/29/25 18:59 06:59 18:59 Intake Total 573.083 10 Balance 573.083 10 Weight 138 kg Intake: IV 10 Invasive Line 1 10 Intake, IV Titration 93.083 Amount Heparin Sod,Pork in 0.45% 93.083 NaCl 25,000 unit In 0.45 % NaCl 1 250ml.bag @ 7. 349 UNITS/KG/HR 10 mls/hr IV .Q24H [facility] Rx#: [id number] Oral 480 Other: Voiding Method Urinal Toilet - Labs CBC & Chem 7: 01/17/25 00:00 01/17/25 09:14 Labs: Abnormal Lab Results - Last 24 Hours (Table) 01/17/25 01/17/25 Range/Units 09:14 14:28 APTT 42.5 H (22.0-30.0) sec BUN 21 H (9-20) mg/dL Glucose 118 H (74-99) mg/dL ALT 61 H (4-49) U/L
[2025-01-18] MEDS: FOLIC ACID 1 MG TAB PO SCH (08:45)
[2025-01-18] MEDS: THIAMINE 100 MG TAB PO SCH (08:45)
[2025-01-18 12:09] VITALS: BP 134/90; PULSE 82
--- NOTE | 2025-01-18 12:45 | P.DS ---
Providers Date of admission: 01/16/25 18:45 Attending physician: Rommel Delacruz Consults: 01/16/25 18:45 Consult Physician Routine Consulting Provider: Brent Mayes Consult Reason/Comments: new aflutter Do you want consulting provider notified?: Already Contacted Primary care physician: Jeferson Weaver MD Hospital Course: I have seen and evaluated the patient today. Discussed with the resident and agree with the residents finding and plan as documented in the resident's note. Changes highlighted in blue font. Discharge diagnoses; #New onset atrial flutter #Hypertensive urgency #Fluid overload #Transaminitis, mild, improving #Nonoliguric MARIZA on CKD stage 2, unknown baseline Hospital course; 64-year-old male with a PMH of hypertension presenting with tachycardia. Patient states he went to his primary care physician today for regular checkup. It was noted that he was tachycardic and his blood pressure was elevated as well. PCP advised him to come to the ED. Patient denies any chest pain, heart palpitations, dizziness. Patient reports he used to be on antihypertensive. He states that he has not had any chest pain, dizziness, changes in vision and states he has shortness of breath at his baseline and it was not any worse since arriving at the hospital. During his stay he initially was receiving a Cardizem drip to better control his heart rate, and once his rate was better controlled the drip was discontinued and he was initiated on Metoprolol Succinate 25 mg daily. He began receiving a Heparin drip on arrival in case there was a need for any intervention. Once cleared by cardiology his heparin drip was discontinued and he was placed on Eliquis 5 mg twice daily. He will be discharged with those two new medications as well. It was discussed with him, and he verbalized understanding, the importance of close follow up after discharge with cardiology as well as his primary care physician. As well the importance of undergoing a sleep study for possible sleep apnea. He is agreeable to this plan and very excited to be discharged today. Physical examination: Vital signs reviewed General: non toxic, no distress, appears at stated age, obese Derm: no unusual rashes/lesions, warm Head: atraumatic, normocephalic, symmetric Eyes: EOMI, anicteric sclera, pupils equal round reactive to light ENT: Nose and ears atraumatic Mouth: no lip lesion, mucus membranes moist Cardiovascular: S1S2 reg, no murmur, positive dorsalis pedis pulse bilateral Lungs: CTA bilateral, no rhonchi, no rales, no accessory muscle use Abdominal: soft, nontender to palpation, no guarding Ext: muscle strength 5 out of 5 in all 4 extremities grossly, 2+ RLE pitting edema to the midshin, 1+ LLE pitting edema to mid singletary Neuro: CN II-XI grossly intact, no gross focal neuro deficits Psych: Alert, oriented to person, place, and time Dictation was produced using [employer] dictation software. please excuse any grammatical, word or spelling errors. Yakov Palacios MD PGY-1 IM Patient Condition at Discharge: Fair Plan - Discharge Summary New Discharge Prescriptions: New Apixaban [Eliquis] 5 mg PO BID #60 tab Losartan-Hctz 50-12.5 mg [Hyzaar 50-12.5] 1 each PO DAILY #30 tab Furosemide [Lasix] 40 mg PO BID@0900,1600 #60 tab Metoprolol Succinate (ER) [Toprol XL] 25 mg PO DAILY #30 tab Discontinued Ibuprofen [Motrin Ib] 800 mg PO DAILY Discharge Medication List Apixaban [Eliquis] 5 mg PO BID #60 tab 01/18/25 [Rx] Furosemide [Lasix] 40 mg PO BID@0900,1600 #60 tab 01/18/25 [Rx] Losartan-Hctz 50-12.5 mg [Hyzaar 50-12.5] 1 each PO DAILY #30 tab 01/18/25 [Rx] Metoprolol Succinate (ER) [Toprol XL] 25 mg PO DAILY #30 tab 01/18/25 [Rx] Follow up Appointment(s)/Referral(s): Jose Fitzgerald MD [STAFF PHYSICIAN] - 1 Week Jeferson Weaver MD [Primary Care Provider] - 1-2 days Activity/Diet/Wound Care/Special Instructions: Heart Healthy diet. Be sure to follow up with primary care physician and cardiology within 1 week of discharge from the hospital. Follow up with the sleep center to undergo testing for obstructive sleep apnea. Discharge Disposition: HOME SELF-CARE
[2025-01-18] MEDS ORDERED: FUROSEMIDE 40 MG TAB PO SCH (16:00)
== END 2025-01-18 13:33 | disposition home or self-care (01) ==
LOC: EC 15:45 → 3SCARD 18:45
PROVIDERS: ADMIT Student in an Organized Health Care Education/Training Program; ATTEND Student in an Organized Health Care Education/Training Program
DX: I48.92 Unspecified atrial flutter (principal); I16.0 Hypertensive urgency; I13.0 Hypertensive heart and chronic kidney disease with heart failure and stage 1 through stage 4 chronic kidney disease, or unspecified chronic kidney disease; I50.33 Acute on chronic diastolic (congestive) heart failure; N18.2 Chronic kidney disease, stage 2 (mild); N17.9 Acute kidney failure, unspecified; I48.91 Unspecified atrial fibrillation; R74.01 Elevation of levels of liver transaminase levels; F10.20 Alcohol dependence, uncomplicated; E66.01 Morbid (severe) obesity due to excess calories; G47.30 Sleep apnea, unspecified; Z68.41 Body mass index [BMI] 40.0-44.9, adult; Z79.1 Long term (current) use of non-steroidal anti-inflammatories (NSAID); Z87.891 Personal history of nicotine dependence
CPT/HCPCS: 96376 ×2; 96366 ×4; 96367; 96372; 96375 ×2; 96361; 96365; 99291; 36415; 93005; 93306; 83880; 80053 ×2; 83735 ×2; 84443; 84484; 85025 ×2; 85610 ×2; 85730 ×2; 80306; 80320; 71046; G0378 ×3; J2060; J1940 ×2; J3411; Q9957; J1644 ×3

== ENCOUNTER → 2025-03-26 | Outpatient (CLI) | payer OTHER ==
--- NOTE | 2025-03-30 20:02 | CTL ---
EXAMINATION TYPE: CT Low Dose Lung DATE OF EXAM: 03/26/2025 5:15 PM COMPARISON: 03/21/2023 SCREENING VISIT: Subsequent CT DIAGNOSTIC QUALITY: Limited, but interpretable CLINICAL INDICATION: Male, 64 years old with history of Z12.2 LUNG CA SCR F17.210 NICOTINE DEPENDENCE , Recently quit smoking, H/O 1 ppd x20 years, Lung cancer screening, History of tobacco use. TECHNIQUE: Low dose computed tomography scan was performed through the chest at 1 mm thick sections a nd reconstructed images in the coronal plane at 1 mm thick sections. Contrast used: mL of , (none if empty) Oral contrast used: (none if empty) CT DLP: 92 mGycm, Automated exposure control for dose reduction was used. CT CTDI: 3.68 mGy, Automated exposure control for dose reduction was used. FINDINGS: LUNG NODULES: Present, detailed below: 1. There is 0.4 cm calcification lateral left upper lung field. Series 10 image 82a 2. There is a punctate density within the lateral left lung series 10 image 120 LUNGS: COPD: Severity: None Fibrosis: Severity: None Lymph nodes: None Other findings: None RIGHT PLEURAL SPACE: Effusion: None Calcification: None Thickening: None Pneumothorax: None LEFT PLEURAL SPACE: Effusion: None Calcification: None Thickening: None Pneumothorax: None HEART: Other: Ascending thoracic aorta at the level the main pulmonary artery measures 2.8 cm. The main pul monary artery at the bifurcation measures 3.1 cm. Heart Size: Normal Coronary calcification: Mild coronary artery calcifications present. Pericardial effusion: None OTHER FINDINGS: Upper abdomen: Normal Bony thorax: Normal Supraclavicular region: Normal IMPRESSION: 1. Stable punctate benign-appearing densities within the left lung. Follow-up low-dose CT chest one y ear FOLLOW UP CT CHEST RECOMMENDATION: Low dose CT chest one year CT LUNG RAD: Lung-Rad 2 Benign Appearance or Behavior [facility], Workstation: [employer], 03/30/2025 7:59 PM
== END | disposition home or self-care (01) ==
LOC: RADCTMAIN 16:54
PROVIDERS: ATTEND Internal Medicine
DX: Z12.2 Encounter for screening for malignant neoplasm of respiratory organs (principal); F17.210 Nicotine dependence, cigarettes, uncomplicated; J98.4 Other disorders of lung
CPT/HCPCS: 71271